=== PATIENT | male | born 1975 ===

== ENCOUNTER 2018-11-05 14:46 | Emergency (ER) | payer SELFPAY ==
[~2018-11-05] VITALS: Ht 177.8 cm; Wt 80.3 kg
[2018-11-05 15:55] LABS: BASOPHILS # (AUTO) 0.04 x10^3/uL (0-0.1); BASOPHILS % (AUTO) 1 % (0-1); EOSINOPHILS # (AUTO) 0.05 x10^3/uL (0-0.4); EOSINOPHILS % (AUTO) 1 % (1-7); LYMPHOCYTES # (AUTO) 1.47 x10^3/uL (1-3.4); LYMPHOCYTES % (AUTO) 16 % (22-44); MD NO; MEAN CORPUSCULAR HEMOGLOBIN 30.7 pg (27.5-34.5); MONOCYTES # (AUTO) 0.51 x10^3/uL (0.2-0.8); MONOCYTES % (AUTO) 6 % (2-9); NEUTROPHILS # (AUTO) 7.31 x10^3/uL (1.8-6.8); NEUTROPHILS % (AUTO) 78 % (42-75); PLATELET COUNT 280 x10^3/uL (130-400); RED BLOOD COUNT 5.08 x10^6/uL (4.38-5.82); RED CELL DISTRIBUTION WIDTH 14.4 % (9.4-14.8)
[2018-11-05 16:04] LABS: ALBUMIN 4.2 g/dL (3.4-5.0); ANION GAP 4 mmol/L (5-15); CALCIUM 8.4 mg/dL (8.5-10.1); CHLORIDE 111 mmol/L (98-107)
[2018-11-05 16:09] LABS: ALANINE AMINOTRANSFERASE 29 U/L (12-78); ALKALINE PHOSPHATASE 100 U/L (45-117); BILIRUBIN,TOTAL 0.5 mg/dL (0.2-1.0); CREATININE 0.92 mg/dL (0.7-1.3); TOTAL PROTEIN 7.5 g/dL (6.4-8.2); TROPONIN I < 0.015 ng/mL (0.000-0.045)
--- NOTE | 2018-11-05 16:33 | NUR ---
PT AMBULATED TO ROOM WITH RN. STEADY GAIT.
--- NOTE | 2018-11-05 16:38 | NUR ---
ASSUMED PRIMARY CARE OF PT: PT PRESENTED TO ED D/T CP AND KUMAR SINCE 0800 THIS AM. PT STATES INTERMITTENT THROUGHOUT THE DAY. STATES CP IS LOCALIZED TO LEFT CHEST. PT DENIES CP RADIATING. +PHOTOSENSITIVITY. CONTINOUS CARDIAC MONITORING, NSR 50-60S.
[2018-11-05] MEDS ORDERED: METO200T47 PO (16:41)
[2018-11-05] MEDS ORDERED: OXYC-432 PO (16:41)
[2018-11-05] MEDS ORDERED: CITA10TA4 PO (16:41)
--- NOTE | 2018-11-05 16:41 | NUR ---
PT STATES TOOK ASPIRIN 325MG THIS AM.
--- NOTE | 2018-11-05 17:48 | NUR ---
PT LAYING COMFORTABLY ON GURNEY. ADDITIONAL WARM BLANKETS PROVIDED TO PT. FAMILY AT BEDSIDE. AWAITING FOR PROVIDER TO EVALUATE.
--- NOTE | 2018-11-05 18:29 | NUR ---
PT UPDATED ON POC. VS OBTAINED. AWAITING CT SCAN.
[2018-11-05] MEDS ORDERED: PROMETHAZINE 25 MG/ML, 1ML IM ONE (18:30)
--- NOTE | 2018-11-05 18:39 | NUR ---
PT BEING TRANSPORTED TO CT SCAN VIA [facility].
--- NOTE | 2018-11-05 18:48 | NUR ---
PT RETURNED FROM CT SCAN.
--- NOTE | 2018-11-05 18:57 | NUR ---
REPORT TO LATANYA ABDI.
--- NOTE | 2018-11-05 19:07 | NUR ---
RECEIVED BS REPORT FROM LATANYA PETERSEN TO ASSUME PT. CARE. DR. STODDARD AT BS NOW TO DISCUSS DISPO. ALL MONITORS IN PLACE.
[2018-11-05 19:49] LABS: TROPONIN I < 0.015 ng/mL (0.000-0.045)
[2018-11-05 19:59] VITALS: BP 130/90
== END 2018-11-05 20:00 | disposition home or self-care (01) ==
LOC: EDBD 14:46 → ED 19:54
DX: R07.89 Other chest pain (principal); R51 Headache; I10 Essential (primary) hypertension; F17.200 Nicotine dependence, unspecified, uncomplicated
CPT/HCPCS: 36415; 70450; 71046; 80053; 83690; 84484; 85025; 93005; 99284